=== PATIENT | male | born 1995 | race Caucasian/White ===

== ENCOUNTER 2019-11-15 11:56 | Emergency (ER) | payer SELFPAY ==
[~2019-11-15] VITALS: Ht 177.8 cm; Wt 70.0 kg
[2019-11-15 12:13] VITALS: BP 124/71
[2019-11-15] MEDS ORDERED: IV NORMAL SALINE 1,000ML 1,000 ML IV ONE (12:15)
[2019-11-15] MEDS ORDERED: CLIN300C8 PO (12:36)
--- NOTE | 2019-11-15 12:39 | PHYS DOC ---
Past History Past Medical History: No Pertinent History Alcohol Use: Occasionally Adult General Chief Complaint Chief Complaint: SKIN PROBLEM HPI HPI Patient is a 24-year-old male who presents to the emergency room complaining of pain and a bump in his gluteal cleft. He noticed it about a week ago and it has slowly gotten worse. He denies any drainage. He has had abscess one other time in his hand. He denies any difficulty to with bowels. He does not have any constipation. She does not have any rectal pain. He denies any fevers. Review of Systems Review of Systems General: Denies fever, chills, sweats, fatigue Eyes: Denies drainage, blurred vision, eye redness HENT: Denies rhinorrhea, sore throat, earache Respiratory: Denies cough, shortness of breath, wheezing Cardiac: Denies edema, palpitations, chest pain GI: Denies abdominal pain, Nausea, vomiting MSK: Denies back pain, neck pain Skin: Denies rash, jaundice Neuro: Denies headache, dizziness Psychiatric: Denies SI/HI Current Medications Current Medications Current Medications Medications (Trade) Dose Ordered Sig/Keily Start Time Stop Time Status Last Admin Dose Admin Sodium Chloride 1,000 ml @ 1,000 mls/hr 1X ONCE 11/15/19 12:15 11/15/19 12:28 DC Physical Exam Physical Exam General: Awake, alert, NAD. Well Nourished, well hydrated. Cooperative HEENT: Atraumatic, EOMI, PERRL, airway patent, moist oral mucosa Neck: Supple, trachea midline Respiratory: CTA bilaterally, normal effort, no wheezing/crackles CV: RRR, no murmur, cap refill <2 GI: Soft, nondistended, nontender, no masses MSK: No obvious deformities Skin: Warm, dry, intact gluteal cleft: 3x1 cm area of induration and swelling without fluctuance Neuro: A&O x3, speech NL, sensory and motor grossly intact, no focal deficits Psych: Normal affect, normal mood, not suicidal or homicidal Current Patient Data Vital Signs Vital Signs Date Time Temp Pulse Resp B/P (MAP) Pulse Ox O2 Delivery O2 Flow Rate FiO2 11/15/19 12:13 98.1 90 15 124/71 (88) 98 Room Air EKG EKG [] Radiology/Procedures Radiology/Procedures [] Course & Med Decision Making Course & Med Decision Making Pertinent Labs and Imaging studies reviewed. (See chart for details) Patient is 24-year-old male who presents to the emergency room complaining of a possible abscess. Patient does have an area of induration without fluctuance. It does not appear that there is anything to drain at this time. We will place him on antibiotics and have him follow-up with primary care. I have discussed with him that he may need drainage in the future he just does not need drainage at this time. Patient's test results and vitals while in the ED were fully reviewed and discussed with the patient. Patient is stable and at this time does not need admission to the hospital. We have discussed strict return precautions and the importance of following up with their Primary Care Physician. Patient stated understanding and was given an opportunity to ask any questions. Patient is in agreement with plan. Dragon Disclaimer Dragon Disclaimer This electronic medical record was generated, in whole or in part, using a voice recognition dictation system. Departure Departure: Impression: Primary Impression: Cellulitis and abscess of buttock Disposition: 01 HOME/RESIDENCE PRIOR TO ADM Condition: STABLE Referrals: PCP,NO (PCP) Patient Instructions: Abscess, [id number] Scripts Clindamycin Hcl (CLINDAMYCIN HCL) 300 Mg Capsule 1 CAP PO TID for cellulitis for 10 Days, #30 CAP Prov: RICHARD MADRID MD 11/15/19 Justification of Admission: Justification of Admission: Justification of Admission Dx: N/A RICHARD MADRID MD Nov 15, 2019 12:39
== END 2019-11-15 12:45 | disposition home or self-care (01) ==
LOC: ER 11:56
DX: L02.31 Cutaneous abscess of buttock (principal); L03.317 Cellulitis of buttock
CPT/HCPCS: 99283